=== PATIENT | female | born 2000 | race Caucasian/White ===

== ENCOUNTER 2018-04-14 20:46 | Emergency (ER) | payer OTHER ==
[~2018-04-14] VITALS: Ht 165.1 cm; Wt 54.4 kg
--- NOTE | 2018-04-14 20:53 | ED.ADGEN ---
Adult General Chief Complaint Chief Complaint ".. I ve been having abd. pain off and on... her upper and to the right...".." I did eat chicken and potatoes before I came..." HPI HPI Patient is a 17 year old female who presents with above hx and complaints of Lt upper and mid gastric pain. . No hx of injury, bad food, or ill contacts. Pt. No hx of travel. Pt. denies any discolored stools. Nothing makes the pain better or worse. Review of Systems Review of Systems Constitutional: Denies fever or chills [] Eyes: Denies change in visual acuity, redness, or eye pain [] HENT: Denies nasal congestion or sore throat [] Respiratory: Denies cough or shortness of breath [] Cardiovascular: No additional information not addressed in HPI [] GI: Epigastric abdominal pain, nausea, . Denies vomiting, bloody stools or diarrhea []Obese. : Denies dysuria or hematuria [] Musculoskeletal: Denies back pain or joint pain [ Integument: Denies rash or skin lesions [] Neurologic: Denies headache, focal weakness or sensory changes [] Endocrine: Denies polyuria or polydipsia [] All other systems were reviewed and found to be within normal limits, except as documented in this note. Family History Family History Non-contributory Current Medications Current Medications Current Medications Medications (Trade) Dose Ordered Sig/Duncan Start Time Stop Time Status Last Admin Dose Admin Ceftriaxone Sodium (Rocephin Im) 1 gm 1X ONCE 04/14/18 23:30 04/14/18 23:30 DC Famotidine (Pepcid) 20 mg 1X ONCE 04/14/18 22:15 04/14/18 22:16 DC 04/14/18 22:28 20 MG Magnesium Hydroxide (Milk Of Magnesia) 2,400 mg 1X ONCE 04/14/18 22:15 04/14/18 22:16 DC 04/14/18 22:29 2,400 MG Ondansetron HCl (Zofran Odt) 8 mg 1X ONCE 04/14/18 22:15 04/14/18 22:16 DC 04/14/18 22:30 8 MG Allergies Allergies Allergies Coded Allergies Type Severity Reaction Last Updated Verified haloperidol Allergy Unknown 04/14/18 Yes Physical Exam Physical Exam Constitutional: moderate acute distress, non-toxic appearance. [] HENT: Normocephalic, atraumatic, bilateral external ears normal, oropharynx moist, no oral exudates, nose normal. [] Eyes: PERRLA, EOMI, conjunctiva normal, no discharge. [] Neck: Normal range of motion, no tenderness, supple, no stridor. [] Cardiovascular:Heart rate regular rhythm, no murmur [] Lungs & Thorax: Bilateral breath sounds equal at apex with scattered wheezes on auscultation [] Abdomen: Bowel sounds normal, soft, mild epigastric tenderness, no masses, no pulsatile masses. [] Pt. declines rectal exam at this time. Skin: Warm, dry, no erythema, no rash. [] Back: No tenderness, no CVA tenderness. [] Extremities: No tenderness, no cyanosis, no clubbing, ROM intact, no edema. [No heel tap, psoas or obturator. Neurologic: Alert and oriented X 3, normal motor function, normal sensory function, no focal deficits noted. [] Psychologic: Affect anxious, judgement normal, mood normal. [] Current Patient Data Vital Signs Vital Signs Date Time Temp Pulse Resp B/P (MAP) Pulse Ox O2 Delivery O2 Flow Rate FiO2 04/14/18 23:05 94 16 106/65 (79) 100 Room Air 04/14/18 21:35 98.8 Lab Results Laboratory Tests Test 04/14/18 21:08 04/14/18 21:50 POC Urine HCG, Qualitative hcg negative (Negative) Urine Collection Type Unknown Urine Color [place] Urine Clarity Cloudy Urine pH 6.0 Urine Specific [place] >=1.030 Urine Protein 30 mg/dl (NEG-TRACE) Urine Glucose (UA) Neg mg/dL (NEG) Urine Ketones (Stick) Trace mg/dL (NEG) Urine Blood Mod (NEG) Urine Nitrite Neg (NEG) Urine Bilirubin Neg (NEG) Urine Urobilinogen Dipstick 1 mg/dL (0.2 mg/dL) Urine Leukocyte Esterase Small (NEG) Urine RBC 1-2 /HPF (0-2) Urine WBC >40 /HPF (0-4) Urine Squamous Epithelial Cells Few /LPF Urine Bacteria Few /HPF (0-FEW) Urine Mucus Marked /LPF Urine Opiates Screen Neg (NEG) Urine Methadone Screen Neg (NEG) Urine Barbiturates Neg (NEG) Urine Phencyclidine Screen Neg (NEG) Urine Amphetamine/Methamphetamine Pos (NEG) Urine Benzodiazepines Screen Neg (NEG) Urine Cocaine Screen Neg (NEG) Urine Cannabinoids Screen Neg (NEG) Urine Ethyl Alcohol Neg (NEG) EKG EKG [] Course & Med Decision Making Course & Med Decision Making Pertinent Labs and Imaging studies reviewed. (See chart for details) Clear fluid diet only x 48 hrs. No solids or milk products. Take Keflex 500 three times a day x 7 days. Take Zantac 150 mg twice a day. Stop smoking and illicit drug use. Return if any concerns. Follow up with primary. Consider need for EGD or Gall bladder studies. [] Final Impression Final Impression 1. Abd. Pain[] 2. Gastritis 3. UTI 4. Methamphetamine- 5. Tobacco Abuse Dragon Disclaimer Dragon Disclaimer This electronic medical record was generated, in whole or in part, using a voice recognition dictation system. JHONATHAN BOND MD Apr 14, 2018 20:53
[2018-04-14 22:13] LABS: AMPHETAMINE/METHAMPHETAMINE POS (NEG); BARBITURATES NEG (NEG); BENZODIAZEPINES NEG (NEG); CANNABINOIDS NEG (NEG); COCAINE NEG (NEG); METHADONE NEG (NEG); OPIATES NEG (NEG); PHENCYCLIDINE NEG (NEG)
[2018-04-14] MEDS ORDERED: MAGNESIUM HYDROXIDE 2,400 MG/30 ML ORAL.SUSP. PO ONE (22:15)
[2018-04-14] MEDS ORDERED: FAMOTIDINE 20 MG TABLET PO ONE (22:15)
[2018-04-14] MEDS ORDERED: ONDANSETRON ODT 4 MG TAB.RAPDIS PO ONE (22:15)
[2018-04-14 22:19] LABS: BACTERIA,URINE FEW /HPF (0-FEW); BILIRUBIN,URINE NEG (NEG); CLARITY,URINE CLOUDY; COLOR,URINE AMBER; GLUCOSE,URINE NEG (NEG); NITRITE,URINE NEG (NEG); SQUAMOUS EPITHELIAL CELL,UR FEW /LPF; UROBILINOGEN,URINE 1 mg/dL (0.2 mg/dL); WBC,URINE >40 /HPF (0-4)
[2018-04-14] MEDS ORDERED: RANI150T21 PO (22:58)
[2018-04-14] MEDS ORDERED: CEPH-264 PO (22:58)
[2018-04-14 23:05] VITALS: BP 106/65
[2018-04-14] MEDS ORDERED: cefTRIAXone IM 1 GM VIAL IM ONE (23:30)
== END 2018-04-14 23:07 | disposition home or self-care (01) ==
LOC: ER 20:46
DX: K29.70 Gastritis, unspecified, without bleeding (principal); N39.0 Urinary tract infection, site not specified; F15.90 Other stimulant use, unspecified, uncomplicated; Z72.0 Tobacco use; Z88.8 Allergy status to other drugs, medicaments and biological substances
CPT/HCPCS: 36415; 80307; 81001; 81025; 87086; 99284; Q0162; G0479

== ENCOUNTER 2018-06-23 20:51 | Emergency (ER) | payer OTHER ==
[~2018-06-23] VITALS: Ht 167.6 cm; Wt 69.4 kg
[~2018-06-23 20:51] MED LIST: CEPH-264 PO; RANI150T21 PO
--- NOTE | 2018-06-23 21:07 | ED.ADGEN ---
Past History Past Medical History: Asthma, Bipolar, Depression Past Surgical History: No Surgical History Alcohol Use: None Drug Use: None Adult General Chief Complaint Chief Complaint ".. I am .. and I started having pain yesterday .. when I fell on stairs.. and tonight I started bleeding in the shower..tonight." HPI HPI Patient is a 17 year old female who presents with above hx and complaints abdomen pain with vaginal bleeding. Pt. she estimates 2- 3 months. Pt fell going up stairs last night.. and has had abdomen pain since then. Pt. localizes pain in lower pelvic. Tonight when taking a shower she notice vaginal bleeding. Pt. denies prior pregnancies. Denies prior STD's. Has had hx of 15 life time sexual partners. Pt. has not had any care. Pt. states recent bleeding has soaked the tampon. Pt, does smoke but denies other drug use. Pt. described pain worse with movement tonight. Patient states her home test was positive. Review of Systems Review of Systems Constitutional: Denies fever or chills [] Eyes: Denies change in visual acuity, redness, or eye pain [] HENT: Denies nasal congestion or sore throat [] Respiratory: Denies cough or shortness of breath [] Cardiovascular: No additional information not addressed in HPI [] GI: Complaints of abdominal pain, nausea,. Denies vomiting, bloody stools or diarrhea [] : Denies dysuria or hematuria [. Vaginal Bleeding Musculoskeletal: Denies back pain or joint pain [] Integument: Denies rash or skin lesions [] Neurologic: Denies headache, focal weakness or sensory changes [] Endocrine: Denies polyuria or polydipsia [] All other systems were reviewed and found to be within normal limits, except as documented in this note. Family History Family History Non-contributory Current Medications Current Medications Current Medications Medications (Trade) Dose Ordered Sig/Duncan Start Time Stop Time Status Last Admin Dose Admin Lactated Ringer's 1,000 ml @ 1,000 mls/hr Q1H 06/23/18 21:30 06/23/18 22:29 DC 06/23/18 21:54 1,000 MLS/HR Allergies Allergies Allergies Coded Allergies Type Severity Reaction Last Updated Verified haloperidol Allergy Unknown 04/14/18 Yes Physical Exam Physical Exam Constitutional: Well developed, well nourished, moderately acute distress, non- toxic appearance. [] HENT: Normocephalic, atraumatic, bilateral external ears normal, oropharynx moist, no oral exudates, nose normal. [] Eyes: PERRLA, EOMI, conjunctiva normal, no discharge. []Glasses Neck: Normal range of motion, no tenderness, supple, no stridor. [] Cardiovascular:Heart rate regular rhythm, no murmur [] Lungs & Thorax: Bilateral breath sounds equal at apex with scattered wheezing on auscultation [] Abdomen: Bowel sounds normal, soft, generalized lower abdomen tenderness, no masses, no pulsatile masses. [Poorly exam shows bleeding from os. Bilateral adnexal tenderness. Cervix does not appear to be consistent with . Mild rebound to lower abdomen. Skin: Warm, dry, no erythema, no rash. [] Back: No tenderness, no CVA tenderness. [] Extremities: No tenderness, no cyanosis, no clubbing, ROM intact, no edema. [] No true psoas sign or heeltap. Neurologic: Alert and oriented X 3, normal motor function, normal sensory function, no focal deficits noted. [] Psychologic: Affect very anxious, judgement normal, mood normal. [] Current Patient Data Vital Signs Vital Signs Date Time Temp Pulse Resp B/P (MAP) Pulse Ox O2 Delivery O2 Flow Rate FiO2 06/23/18 23:47 71 18 111/42 (65) 97 Room Air 06/23/18 21:03 99.0 Lab Results Laboratory Tests Test 06/23/18 21:33 06/23/18 21:57 06/23/18 22:13 White Blood Count 8.4 x10^3/uL (4.0-11.0) Red Blood Count 4.17 x10^6/uL (3.50-5.40) Hemoglobin 12.2 g/dL (12.0-15.5) Hematocrit 37.0 % (36.0-47.0) Mean Corpuscular Volume 89 fL (79-100) Mean Corpuscular Hemoglobin 29 pg (25-35) Mean Corpuscular Hemoglobin Concent 33 g/dL (31-37) Red Cell Distribution Width 13.9 % (11.5-14.5) Platelet Count 292 x10^3/uL (140-400) Neutrophils (%) (Auto) 56 % (31-73) Lymphocytes (%) (Auto) 31 % (24-48) Monocytes (%) (Auto) 10 % (0-9) H Eosinophils (%) (Auto) 2 % (0-3) Basophils (%) (Auto) 1 % (0-3) Neutrophils # (Auto) 4.7 x10^3uL (1.8-7.7) Lymphocytes # (Auto) 2.6 x10^3/uL (1.0-4.8) Monocytes # (Auto) 0.8 x10^3/uL (0.0-1.1) Eosinophils # (Auto) 0.2 x10^3/uL (0.0-0.7) Basophils # (Auto) 0.1 x10^3/uL (0.0-0.2) Prothrombin Time 10.7 SEC (9.4-11.4) Prothrombin Time INR 1.1 (0.9-1.1) PTT 27 SEC (23-33) Maternal Serum HCG Beta Subunit < 1 mIU/mL (0-6) Sodium Level 141 mmol/L (136-145) Potassium Level 3.5 mmol/L (3.5-5.1) Chloride Level 106 mmol/L (98-107) Carbon Dioxide Level 27 mmol/L (21-32) Anion Gap 8 (6-14) Blood Urea Nitrogen 16 mg/dL (7-20) Creatinine 0.7 mg/dL (0.6-1.0) Estimated GFR (Cockcroft-Gault) 107.8 Glucose Level 93 mg/dL (70-99) Calcium Level 8.5 mg/dL (8.5-10.1) Total Bilirubin 0.3 mg/dL (0.2-1.0) Direct Bilirubin 0.1 mg/dL (0.0-0.2) Aspartate Amino Transferase (AST) 61 U/L (15-37) H Alanine Aminotransferase (ALT) 316 U/L (14-59) H Alkaline Phosphatase 78 U/L (46-116) Total Protein 7.3 g/dL (6.4-8.2) Albumin 3.7 g/dL (3.4-5.0) Lipase 189 U/L (73-393) Urine Collection Type U cath Urine Color Yellow Urine Clarity Clear Urine pH 6.0 Urine Specific [place] 1.025 Urine Protein Neg (NEG-TRACE) Urine Glucose (UA) Neg mg/dL (NEG) Urine Ketones (Stick) Trace mg/dL (NEG) Urine Blood Neg (NEG) Urine Nitrite Neg (NEG) Urine Bilirubin Neg (NEG) Urine Urobilinogen Dipstick 0.2 mg/dL (0.2 mg/dL) Urine Leukocyte Esterase Neg (NEG) Urine RBC 0 /HPF (0-2) Urine WBC 1-4 /HPF (0-4) Urine Squamous Epithelial Cells Occ /LPF Urine Bacteria 0 /HPF (0-FEW) Urine Mucus Slight /LPF POC Urine HCG, Qualitative hcg negative (Negative) EKG EKG [] Radiology/Procedures Radiology/Procedures Sounds shows no intrauterine . Flow to both ovaries. See formal report when available[] Course & Med Decision Making Course & Med Decision Making Pertinent Labs and Imaging studies reviewed. (See chart for details) Follow-up with primary care follow-up [employer] for dysfunctional uterine bleeding. Follow-up cultures. Continue monitor bleeding. Return if any concerns. Take Tylenol for pain. Encouraged patient to stop smoking. [] Final Impression Final Impression 1. Dysfunctional uterine bleeding 2. Abdomen pain Dragon Disclaimer Dragon Disclaimer This electronic medical record was generated, in whole or in part, using a voice recognition dictation system. JHONATHAN BOND MD Jun 23, 2018 21:07
[2018-06-23] MEDS ORDERED: IV RINGERS SOLUTION,LACTATED 1,000 ML IV SCH (21:30)
[2018-06-23 21:58] LABS: BASO # 0.1 x10^3/uL (0.0-0.2); BASO % 1 % (0-3); EOS # 0.2 x10^3/uL (0.0-0.7); EOS % 2 % (0-3); HEMOGLOBIN 12.2 g/dL (12.0-15.5); LYMPH # 2.6 x10^3/uL (1.0-4.8); LYMPH % 31 % (24-48); MEAN CORPUSCULAR HEMOGLOBIN 29 pg (25-35); MEAN CORPUSCULAR HGB CONC 33 g/dL (31-37); MEAN CORPUSCULAR VOLUME 89 fL (79-100); MONO # 0.8 x10^3/uL (0.0-1.1); MONO % 10 % (0-9); NEUT # 4.7 x10^3uL (1.8-7.7); NEUT % 56 % (31-73); PLATELET COUNT 292 x10^3/uL (140-400); RED BLOOD COUNT 4.17 x10^6/uL (3.50-5.40); RED CELL DISTRIBUTION WIDTH 13.9 % (11.5-14.5); WHITE BLOOD COUNT 8.4 x10^3/uL (4.0-11.0)
[2018-06-23 22:09] LABS: ALBUMIN 3.7 g/dL (3.4-5.0); CALCIUM 8.5 mg/dL (8.5-10.1); CREATININE 0.7 mg/dL (0.6-1.0); DIRECT BILIRUBIN 0.1 mg/dL (0.0-0.2); GFR 107.8; POTASSIUM 3.5 mmol/L (3.5-5.1); TOTAL BILIRUBIN 0.3 mg/dL (0.2-1.0); TOTAL PROTEIN 7.3 g/dL (6.4-8.2)
[2018-06-23 22:37] LABS: BACTERIA,URINE 0 /HPF (0-FEW); BILIRUBIN,URINE NEG (NEG); CLARITY,URINE CLEAR; COLOR,URINE YELLOW; GLUCOSE,URINE NEG (NEG); NITRITE,URINE NEG (NEG); RBC,URINE 0 /HPF (0-2); UROBILINOGEN,URINE 0.2 mg/dL (0.2 mg/dL)
[2018-06-23 22:38] LABS: SQUAMOUS EPITHELIAL CELL,UR OCC /LPF
[2018-06-23 23:47] VITALS: BP 111/42
--- NOTE | 2018-06-23 23:49 | RAD ---
Ultrasound pelvis complete and transvaginal ultrasound pelvis: HISTORY: Patient thought she was , vaginal bleeding positive test in March Sonographic examination of the pelvis was performed by transabdominal and endovaginal technique and multiple static images were obtained Ultrasound pelvis complete transabdominal: The uterus is seen. The ovaries are not seen. Transvaginal ultrasound pelvis: The uterus appears normal. The endometrium is homogeneous measures 6 mm in thickness. The ovaries appear normal normal blood flow. The right ovary measures 2.2 x 2.2 x 2.1 cm. Left ovary measures 2.5 x 1.8 x 1.5 cm. IMPRESSION: Negative examination. No evidence of . Electronically signed by: Saroj Gonzalez III, MD (06/23/2018 11:46 PM) [facility]
[2018-06-25 15:07] LABS: CHLAMYDIA PROBE Negative (Negative)
== END 2018-06-24 00:06 | disposition home or self-care (01) ==
LOC: ER 20:51
DX: N93.8 Other specified abnormal uterine and vaginal bleeding (principal); R10.84 Generalized abdominal pain; J45.909 Unspecified asthma, uncomplicated; Z88.8 Allergy status to other drugs, medicaments and biological substances
CPT/HCPCS: 36415; 76830; 76856; 80048; 80076; 81001; 81025; 83690; 84443; 84702; 85025; 85610; 85730; 86592; 86703; 86705; 86709; 86803; 86900; 86901; 87340; 87491; 87591; 99285; J7120

== ENCOUNTER 2018-07-04 15:53 | Emergency (ER) | payer OTHER ==
[~2018-07-04] VITALS: Ht 167.6 cm; Wt 69.4 kg
[2018-07-04] MEDS ORDERED: IV NORMAL SALINE 1,000ML 1,000 ML IV ONE ×2 (16:00→17:00)
[2018-07-04] MEDS ORDERED: NALOXONE 2 MG/2 ML DISP.SYRIN. IV ONE ×2 (16:08→17:15)
[2018-07-04 16:11] VITALS: BP 115/56
[2018-07-04 16:14] LABS: BASO # 0.1 x10^3/uL (0.0-0.2); BASO % 1 % (0-3); EOS # 0.1 x10^3/uL (0.0-0.7); EOS % 2 % (0-3); HEMATOCRIT 36.4 % (36.0-47.0); HEMOGLOBIN 12.2 g/dL (12.0-15.5); LYMPH # 1.6 x10^3/uL (1.0-4.8); LYMPH % 23 % (24-48); MEAN CORPUSCULAR HEMOGLOBIN 29 pg (25-35); MEAN CORPUSCULAR HGB CONC 34 g/dL (31-37); MEAN CORPUSCULAR VOLUME 87 fL (79-100); MONO # 0.6 x10^3/uL (0.0-1.1); MONO % 9 % (0-9); NEUT # 4.5 x10^3uL (1.8-7.7); NEUT % 66 % (31-73); PLATELET COUNT 243 x10^3/uL (140-400); RED BLOOD COUNT 4.16 x10^6/uL (3.50-5.40); RED CELL DISTRIBUTION WIDTH 12.8 % (11.5-14.5); WHITE BLOOD COUNT 6.9 x10^3/uL (4.0-11.0)
[2018-07-04 16:20] LABS: BACTERIA,URINE 0 /HPF (0-FEW); BILIRUBIN,URINE NEG (NEG); CLARITY,URINE CLEAR; COLOR,URINE YELLOW; GLUCOSE,URINE NEG (NEG); NITRITE,URINE NEG (NEG); RBC,URINE RARE /HPF (0-2); SQUAMOUS EPITHELIAL CELL,UR OCC /LPF; UROBILINOGEN,URINE 0.2 mg/dL (0.2 mg/dL); WBC,URINE 0 /HPF (0-4)
[2018-07-04 16:22] LABS: AMPHETAMINE/METHAMPHETAMINE NEG (NEG); BARBITURATES NEG (NEG); BENZODIAZEPINES NEG (NEG); CALCIUM 8.7 mg/dL (8.5-10.1); CANNABINOIDS NEG (NEG); COCAINE NEG (NEG); CREATININE 0.7 mg/dL (0.6-1.0); GFR 107.8; METHADONE NEG (NEG); OPIATES NEG (NEG); PHENCYCLIDINE NEG (NEG); POTASSIUM 3.7 mmol/L (3.5-5.1)
--- NOTE | 2018-07-04 16:45 | RAD ---
CT Head without contrast Clinical Indication: Unresponsive, syncopal episode Comparison: None Technique: Multiple CT images of the head were obtained without contrast. *One or more of the following individualized dose reduction techniques were utilized for this examination: 1. Automated exposure control. 2. Adjustment of the mA and/or kV according to patient size. 3. Use of iterative reconstruction technique. Findings: Ventricles and subarachnoid spaces are normal in size and configuration for age. No acute intracranial hemorrhage or extra-axial fluid collection. The maldonado-white matter interfaces are maintained. No midline shift. The basal cisterns are patent. The visualized mastoid air cells and paranasal sinuses are well aerated. Impression: No acute intracranial hemorrhage. Electronically signed by: Issa Jordan MD (07/04/2018 4:41 PM) [facility] [place]
--- NOTE | 2018-07-04 16:45 | RAD ---
Single view chest 07/04/2018 CLINICAL INDICATION: Syncope. COMPARISON: None. FINDINGS: Cardiac and mediastinal silhouettes are unremarkable. No pleural effusion, pneumothorax or focal consolidation. IMPRESSION: No acute cardiopulmonary abnormality. Electronically signed by: Issa Jordan MD (07/04/2018 4:42 PM) [facility] [place]
--- NOTE | 2018-07-04 16:55 | PHYS DOC ---
Past History Past Medical History: No Pertinent History Past Surgical History: No Surgical History Alcohol Use: None Drug Use: None Adult General Chief Complaint Chief Complaint: ALTERED MENTAL STATUS HPI HPI 17-year-old female presents via EMS unresponsive but with stable vitals. The patient was putting hair dye in her hair and then reported to get [place] in her eyes and mouth. Family states that she then passed out and became unresponsive. EMS found her to only react to painful stimuli. Her blood pressure , heart rate, and patient's saturation was normal. When the patient arrived in the ED, she was only responsive to pain or noxious stimuli. After the patient woke up, she told me that she remembered using the hair dye and getting it in her mouth. She felt like she was going in and out of consciousness lasting she remembers before waking up in the emergency room. Patient does have a history of intermittent syncope that she is unsure why she has. She states that she also was diagnosed with seizure disorder. She has not taken seizure medication last 2 years. She had a seizure one month ago. She states that they are typically triggered by stress or flashing lights. The patient denies any pain at this time. She has not been feeling ill lately. Review of Systems Review of Systems Constitutional: Denies fever or chills [] Eyes: Denies change in visual acuity, redness, or eye pain [] HENT: Denies nasal congestion or sore throat [] Respiratory: Denies cough or shortness of breath [] Cardiovascular: No additional information not addressed in HPI [] GI: Denies abdominal pain, nausea, vomiting, bloody stools or diarrhea [] : Denies dysuria or hematuria [] Musculoskeletal: Denies back pain or joint pain [] Integument: Denies rash or skin lesions [] Neurologic: Syncope[] Endocrine: Denies polyuria or polydipsia [] All other systems were reviewed and found to be within normal limits, except as documented in this note. Current Medications Current Medications Current Medications Medications (Trade) Dose Ordered Sig/Duncan Start Time Stop Time Status Last Admin Dose Admin Naloxone HCl (Narcan) 2 mg STK-MED ONCE 07/04/18 16:08 07/04/18 16:09 DC Sodium Chloride 1,000 ml @ 1,000 mls/hr 1X ONCE 07/04/18 16:00 07/04/18 16:59 Allergies Allergies Allergies Coded Allergies Type Severity Reaction Last Updated Verified haloperidol Allergy Unknown 04/14/18 Yes Physical Exam Physical Exam Constitutional: Well developed, well nourished, non-toxic appearance. Unconscious [] HENT: Normocephalic, atraumatic, bilateral external ears normal, oropharynx moist, no oral exudates, nose normal. [] Eyes: PERRLA, EOMI, conjunctiva normal, no discharge. [] Neck: Normal range of motion, no tenderness, supple, no stridor. [] Cardiovascular:Heart rate regular rhythm, no murmur [] Lungs & Thorax: Bilateral breath sounds clear to auscultation [] Abdomen: Bowel sounds normal, soft, no tenderness, no masses, no pulsatile masses. [] Skin: Warm, dry, no erythema, no rash. [] Back: No tenderness, no CVA tenderness. [] Extremities: No tenderness, no cyanosis, no clubbing, ROM intact, no edema. [] Neurologic: Initially only responsive to painful or noxious stimuli. On reexamination she was Alert and oriented X 3, normal motor function, normal sensory function, no focal deficits noted. [] Psychologic: Affect normal, judgement normal, mood anxious. [] Current Patient Data Lab Results Laboratory Tests Test 07/04/18 16:00 White Blood Count 6.9 x10^3/uL (4.0-11.0) Red Blood Count 4.16 x10^6/uL (3.50-5.40) Hemoglobin 12.2 g/dL (12.0-15.5) Hematocrit 36.4 % (36.0-47.0) Mean Corpuscular Volume 87 fL (79-100) Mean Corpuscular Hemoglobin 29 pg (25-35) Mean Corpuscular Hemoglobin Concent 34 g/dL (31-37) Red Cell Distribution Width 12.8 % (11.5-14.5) Platelet Count 243 x10^3/uL (140-400) Neutrophils (%) (Auto) 66 % (31-73) Lymphocytes (%) (Auto) 23 % (24-48) L Monocytes (%) (Auto) 9 % (0-9) Eosinophils (%) (Auto) 2 % (0-3) Basophils (%) (Auto) 1 % (0-3) Neutrophils # (Auto) 4.5 x10^3uL (1.8-7.7) Lymphocytes # (Auto) 1.6 x10^3/uL (1.0-4.8) Monocytes # (Auto) 0.6 x10^3/uL (0.0-1.1) Eosinophils # (Auto) 0.1 x10^3/uL (0.0-0.7) Basophils # (Auto) 0.1 x10^3/uL (0.0-0.2) Urine Collection Type Unknown Urine Color Yellow Urine Clarity Clear Urine pH 8.0 Urine Specific [place] 1.015 Urine Protein Neg (NEG-TRACE) Urine Glucose (UA) Neg mg/dL (NEG) Urine Ketones (Stick) Neg mg/dL (NEG) Urine Blood Neg (NEG) Urine Nitrite Neg (NEG) Urine Bilirubin Neg (NEG) Urine Urobilinogen Dipstick 0.2 mg/dL (0.2 mg/dL) Urine Leukocyte Esterase Neg (NEG) Urine RBC Rare /HPF (0-2) Urine WBC 0 /HPF (0-4) Urine Squamous Epithelial Cells Occ /LPF Urine Bacteria 0 /HPF (0-FEW) Sodium Level 135 mmol/L (136-145) L Potassium Level 3.7 mmol/L (3.5-5.1) Chloride Level 103 mmol/L (98-107) Carbon Dioxide Level 26 mmol/L (21-32) Anion Gap 6 (6-14) Blood Urea Nitrogen 10 mg/dL (7-20) Creatinine 0.7 mg/dL (0.6-1.0) Estimated GFR (Cockcroft-Gault) 107.8 Glucose Level 103 mg/dL (70-99) H Calcium Level 8.7 mg/dL (8.5-10.1) Urine Opiates Screen Neg (NEG) Urine Methadone Screen Neg (NEG) Urine Barbiturates Neg (NEG) Urine Phencyclidine Screen Neg (NEG) Urine Amphetamine/Methamphetamine Neg (NEG) Urine Benzodiazepines Screen Neg (NEG) Urine Cocaine Screen Neg (NEG) Urine Cannabinoids Screen Neg (NEG) Urine Ethyl Alcohol Neg (NEG) EKG EKG Sinus rhythm, rate 66, normal axis, no ST elevations or depressions.[] Radiology/Procedures Radiology/Procedures [] Impressions: CT Head without contrast Clinical Indication: Unresponsive, syncopal episode Comparison: None Technique: Multiple CT images of the head were obtained without contrast. *One or more of the following individualized dose reduction techniques were utilized for this examination: 1. Automated exposure control. 2. Adjustment of the mA and/or kV according to patient size. 3. Use of iterative reconstruction technique. Findings: Ventricles and subarachnoid spaces are normal in size and configuration for age. No acute intracranial hemorrhage or extra-axial fluid collection. The maldonado-white matter interfaces are maintained. No midline shift. The basal cisterns are patent. The visualized mastoid air cells and paranasal sinuses are well aerated. Impression: No acute intracranial hemorrhage. Electronically signed by: Cindy Jordan MD (07/04/2018 4:41 PM) [facility] DICTATED AND SIGNED BY: CINDY JORDAN MD DATE: 07/04/18 1640 CC: KACY MANN DO; PCP,NO Single view chest 07/04/2018 CLINICAL INDICATION: Syncope. COMPARISON: None. FINDINGS: Cardiac and mediastinal silhouettes are unremarkable. No pleural effusion, pneumothorax or focal consolidation. IMPRESSION: No acute cardiopulmonary abnormality. Electronically signed by: Cindy Jordan MD (07/04/2018 4:42 PM) [facility] [place] DICTATED AND SIGNED BY: CINDY JORDAN MD DATE: 07/04/18 1641 CC: KACY MANN DO; PCP,NO Course & Med Decision Making Course & Med Decision Making Pertinent Labs and Imaging studies reviewed. (See chart for details) On arrival the patient was only responsive to painful stimuli. I did try an ammonia tablet that she reacted to. She began to cough. There was saliva in her mouth and she turned her head while coughing without assistance. She still was unable to answer questions or open her eyes. She coughed for about 30 seconds and then went back to being unresponsive. She was able to protect her airway and control her saliva, so intubation wasn't necessary. Her O2 saturation, heart rate, and blood pressure were reassuring. The patient had one episode of shaking her bilateral upper extremities that lasted for about 10 seconds. She continued to be unarousable at that time. The patient was given 2 mg of Narcan with no effect. 1 L normal saline was started. After about 45 minutes, the patient woke up. She was able to tell me the story from her perspective. She was alert and oriented. She was answering questions appropriately. She denies any drug use. She denies any alcohol today. He admits to drug use in the past, [address] months [address] Her head CT and chest x-ray are unremarkable. Her labs are unremarkable. Her urinalysis is negative for infection. Her urine drug screen is negative. It is possible that the patient had a syncopal event followed by seizure. I do not have definitive evidence either way. I will give her 1 g of Keppra and have her follow-up with neurology, , this week. If she has another seizure she will return to the emergency room for admission. Review of 35 minutes of critical care time was spent on this patient exclusive of other billable procedures. [] Dragon Disclaimer Dragon Disclaimer This electronic medical record was generated, in whole or in part, using a voice recognition dictation system. Departure Departure: Referrals: PCP,DARIA (PCP) KACY MANN DO Jul 04, 2018 16:55
--- NOTE | 2018-07-04 17:24 | EKG ---
[address] [address] Test Date: 2018-07-04 Test Time: 16:36:50 Pat Name: MARTIN MUNSON Department: Room: Gender: F Color Tester: : 2000 Requested By: KACY MANN Order Number: [id number] Reading MD: Zander Austin MD Measurements Intervals [place] Rate: 66 P: 0 VA: 114 QRS: 53 QRSD: 80 T: 42 QT: 374 QTc: 394 Interpretive Statements SINUS RHYTHM Electronically Signed On 07-07-2018 10:04:08 WRAP CHECKER by Zander Austin MD
[2018-07-04] MEDS ORDERED: levETIRAcetam 500 MG TABLET PO ONE (17:40)
== END 2018-07-04 18:28 | disposition home or self-care (01) ==
LOC: ER 15:53
DX: R55 Syncope and collapse (principal); G40.909 Epilepsy, unspecified, not intractable, without status epilepticus; Z88.8 Allergy status to other drugs, medicaments and biological substances
CPT/HCPCS: 36415; 51702; 70450; 71045; 80048; 80307; 81001; 85025; 93005; 96361; 96374; 99285; J2310; J7030

== ENCOUNTER 2018-09-06 13:54 | Emergency (ER) | payer OTHER ==
[~2018-09-06] VITALS: Ht 167.6 cm; Wt 60.4 kg
--- NOTE | 2018-09-06 15:01 | PHYS DOC ---
Past History Past Medical History: Anxiety, Bipolar, Depression, Seizure, UTI Past Surgical History: No Surgical History Alcohol Use: None Drug Use: Methamphetamine Adult General Chief Complaint Chief Complaint: ABDOMINAL PAIN IN HPI HPI Patient is a 17 yo female who presents with complaint of abdominal cramping that began overnight. Patient reports she had an appointment on 09/02/18 with PCP where they confirmed her . Patient does not know how far along she is or timing of her LMP as she had miscarriage in late May 2018 and did not have regular periods after that. She reports prior to her miscarriage she was having abdominal cramping that was similar in nature to today's symptoms. Therefore patient is a [id number]. She reports past history of IV methamphetamine abuse with last use 4 days prior. She denies vaginal discharge, bleeding, foul smelling urine, burning with urination, nausea, vomiting or diarrhea. She has not taken any medication to alleviate the symptoms. She also reports PMH of hep C that she has not yet received treatment. She has first appointment with OBGYN scheduled for Friday (09/08/18). Review of Systems Review of Systems Constitutional: Denies fever or chills [] HENT: Denies nasal congestion or sore throat [] Respiratory: Denies cough or shortness of breath [] Cardiovascular: Denies chest pain or palpitation GI: Admits abdominal pain; denies nausea, vomiting, bloody stools or diarrhea [] : Denies dysuria or hematuria, denies vaginal discharge. [] Musculoskeletal: Denies back pain or joint pain [] Integument: Denies rash or skin lesions [] Neurologic: Denies headache, focal weakness or sensory changes [] Complete systems were reviewed and found to be within normal limits, except as documented in this note. Allergies Allergies Allergies Coded Allergies Type Severity Reaction Last Updated Verified haloperidol Allergy Unknown 04/14/18 Yes quetiapine Allergy Unknown 09/06/18 Yes Physical Exam Physical Exam Constitutional: Well developed, well nourished, no acute distress, non-toxic appearance. [] HENT: Normocephalic, atraumatic, oropharynx moist Eyes: EOMI, conjunctiva normal, no discharge. [] Neck: Normal range of motion, no tenderness, supple Cardiovascular: Heart rate regular rhythm, no murmur [] Lungs & Thorax: Bilateral breath sounds clear to auscultation [] Abdomen: Soft, bilateral lower quadrant tenderness present to palpation. : Patient declined pelvic exam- reports she will follow up with her [employer] [employer] [facility] Skin: Warm, dry, no erythema, no rash. healed excoriations present on bilateral antecubital regions. [] Back: No tenderness, no CVA tenderness. [] Extremities: No tenderness, ROM intact, no edema. [] Neurologic: Alert and oriented X 3, normal motor function, normal sensory function, no focal deficits noted. [] Psychologic: Affect normal, judgement normal, mood normal. [] Current Patient Data Vital Signs Vital Signs Date Time Temp Pulse Resp B/P (MAP) Pulse Ox O2 Delivery O2 Flow Rate FiO2 09/06/18 13:54 98.1 98 16 99 Room Air Radiology/Procedures Radiology/Procedures [PROCEDURE: OB <14 WKS W/TV Indication:Positive home test. TECHNIQUE: Ultrasound OB less than 14 weeks. COMPARISON: None FINDINGS: Retroverted uterus is seen measuring 8.0 x 6.5 x 5.0 cm (longitudinal, transverse, AP). Single intrauterine line gestation sac is seen with mean sac diameter of 1.4 cm corresponding to gestation age of 6 weeks 2 day. Yolk sac is seen. [place]-rump length measures 0.26 cm corresponding to gestation age of 5 weeks 6 days. No cardiac activity seen. Right ovary measures 4.3 x 5.7 x 2.8 cm with a simple appearing cyst measuring 2.6 x 3.0 x 2.0 cm and shows blood flow. The left ovary measures 3.7 x 1.7 x 2.4 cm and shows blood flow. Simple appearing small amount of free pelvic fluid seen. IMPRESSION: 1. Single intrauterine corresponding to gestation age of 6 weeks 1 day with no cardiac activity seen as of yet. Follow-up ultrasound recommended. Correlate with beta-hCG. 2. Simple appearing right ovarian cyst. Electronically signed by: Phil Cornell DO (09/06/2018 4:41 PM) [facility]] Course & Med Decision Making Course & Med Decision Making Patient is 17 yo [id number] who presents with chief complaint of abdominal cramping. Pt reports the was confirmed by PCP 09/02/18 and she has first appointment with OBGYN 09/08/18. Patient presents complaining of crampy abdominal pain in lower abdomen that is similar to abdominal pain she had before miscarriage in May 2018. Patient admits to last using IV meth . She denies nausea, vomiting, chest pain, shortness of breath, vaginal discharge, vaginal bleeding, foul smelling urine, dysuria, or concerns for STI. We were unable to obtain blood samples for lab work and patient was unable to provide urine sample. She denied pelvic exam. Patient difficult IV draw due to her chronic IVDA. RN and lab techs attempted blood draws multiple times without success. Patient ultimately requested to stop trying to obtain blood/ urine sample as she will be at [facility]'s office 09/08/17. Patient received NS fluid and PO clear liquids. OB report indicated single IUP measuring 6w1d. Discussed with patient that she should continue her vitamins and keep existing appointment with [employer] and patient vocalized understanding of plan. Also discussed that patient should return with any vaginal bleeding or symptoms return. Patient stable for discharge with outpatient follow-up with PCP. Discussed findings and plan with patient and family, who acknowledge understanding and agreement. Dragon Disclaimer Dragon Disclaimer This electronic medical record was generated, in whole or in part, using a voice recognition dictation system. Departure Departure: Impression: Primary Impression: Abdominal pain during in first trimester Disposition: 01 HOME, SELF-CARE Condition: STABLE Referrals: CAYETANO GILBERT (PCP) Patient Instructions: ABCs of , Abdominal Pain During , Easy- to-Read JEREMI BRADLEY DO Sep 06, 2018 15:01
[2018-09-06] MEDS ORDERED: IV NORMAL SALINE 1,000ML 1,000 ML IV ONE (15:45)
[2018-09-06 16:45] VITALS: BP 113/70
--- NOTE | 2018-09-06 16:45 | RAD ---
Indication:Positive home test. TECHNIQUE: Ultrasound OB less than 14 weeks. COMPARISON: None FINDINGS: Retroverted uterus is seen measuring 8.0 x 6.5 x 5.0 cm (longitudinal, transverse, AP). Single intrauterine line gestation sac is seen with mean sac diameter of 1.4 cm corresponding to gestation age of 6 weeks 2 day. Yolk sac is seen. [place]-rump length measures 0.26 cm corresponding to gestation age of 5 weeks 6 days. No cardiac activity seen. Right ovary measures 4.3 x 5.7 x 2.8 cm with a simple appearing cyst measuring 2.6 x 3.0 x 2.0 cm and shows blood flow. The left ovary measures 3.7 x 1.7 x 2.4 cm and shows blood flow. Simple appearing small amount of free pelvic fluid seen. IMPRESSION: 1. Single intrauterine corresponding to gestation age of 6 weeks 1 day with no cardiac activity seen as of yet. Follow-up ultrasound recommended. Correlate with beta-hCG. 2. Simple appearing right ovarian cyst. Electronically signed by: Phil Cornell DO (09/06/2018 4:41 PM) [facility]
== END 2018-09-06 17:00 | disposition home or self-care (01) ==
LOC: ER 13:54
DX: O26.891 Other specified pregnancy related conditions, first trimester (principal); R10.31 Right lower quadrant pain; R10.32 Left lower quadrant pain; O34.81 Maternal care for other abnormalities of pelvic organs, first trimester; N83.201 Unspecified ovarian cyst, right side; O23.41 Unspecified infection of urinary tract in pregnancy, first trimester; O99.341 Other mental disorders complicating pregnancy, first trimester; F41.9 Anxiety disorder, unspecified; F31.9 Bipolar disorder, unspecified; Z3A.01 Less than 8 weeks gestation of pregnancy; Z88.8 Allergy status to other drugs, medicaments and biological substances
CPT/HCPCS: 76801; 76817; 99284-25

== ENCOUNTER 2018-09-19 18:28 | Emergency (ER) | payer OTHER ==
[2018-09-19 18:32] VITALS: BP 116/73
--- NOTE | 2018-09-19 18:55 | PHYS DOC ---
Past History Past Medical History: Anxiety, Bipolar, Depression, Seizure, UTI Past Surgical History: No Surgical History Alcohol Use: None Drug Use: None Adult General Chief Complaint Chief Complaint: PAIN ON URINATION HPI HPI 17-year-old female presents with dysuria and increased frequency. The patient has had multiple UTIs in the past and states this feels similar. The patient is 8 weeks and she knows she should not delay treatment of UTI during . She denies any vaginal discharge or bleeding. She is not having abdominal pain. She denies fever or chills. Review of Systems Review of Systems Constitutional: Denies fever or chills [] Eyes: Denies change in visual acuity, redness, or eye pain [] HENT: Denies nasal congestion or sore throat [] Respiratory: Denies cough or shortness of breath [] Cardiovascular: No additional information not addressed in HPI [] GI: Denies abdominal pain, nausea, vomiting, bloody stools or diarrhea [] : Dysuria and urinary frequency [] Musculoskeletal: Denies back pain or joint pain [] Integument: Denies rash or skin lesions [] Neurologic: Denies headache, focal weakness or sensory changes [] Endocrine: Denies polyuria or polydipsia [] All other systems were reviewed and found to be within normal limits, except as documented in this note. Allergies Allergies Allergies Coded Allergies Type Severity Reaction Last Updated Verified haloperidol Allergy Unknown 04/14/18 Yes quetiapine Allergy Unknown 09/06/18 Yes Physical Exam Physical Exam Constitutional: Well developed, well nourished, no acute distress, non-toxic appearance. [] HENT: Normocephalic, atraumatic, bilateral external ears normal, oropharynx moist, no oral exudates, nose normal. [] Eyes: PERRLA, EOMI, conjunctiva normal, no discharge. [] Neck: Normal range of motion, no tenderness, supple, no stridor. [] Cardiovascular:Heart rate regular rhythm, no murmur [] Lungs & Thorax: Bilateral breath sounds clear to auscultation [] Abdomen: Bowel sounds normal, soft, no tenderness, no masses, no pulsatile masses. [] Skin: Warm, dry, no erythema, no rash. [] Back: No tenderness, no CVA tenderness. [] Extremities: No tenderness, no cyanosis, no clubbing, ROM intact, no edema. [] Neurologic: Alert and oriented X 3, normal motor function, normal sensory function, no focal deficits noted. [] Psychologic: Affect normal, judgement normal, mood normal. [] Current Patient Data Vital Signs Vital Signs Date Time Temp Pulse Resp B/P (MAP) Pulse Ox O2 Delivery O2 Flow Rate FiO2 09/19/18 18:32 98.4 90 18 99 Room Air EKG EKG [] Radiology/Procedures Radiology/Procedures [] Course & Med Decision Making Course & Med Decision Making Pertinent Labs and Imaging studies reviewed. (See chart for details) Patient urinalysis shows 5-10 white cells site esterase. There are squamous epithelials. Given the patient's symptoms and the importance of treating urinary tract infections in , I will treat her with Keflex for 5 days. [] Dragon Disclaimer Dragon Disclaimer This electronic medical record was generated, in whole or in part, using a voice recognition dictation system. Departure Departure: Impression: Primary Impression: UTI (urinary tract infection) Disposition: HOME, SELF-CARE Condition: STABLE Referrals: CAYETANO GILBERT INDU[employer] COORDINATION ENGINEER-C (PCP) Patient Instructions: - Urinary Tract Infection Scripts Cephalexin (KEFLEX) 500 Mg Capsule 1 CAP PO TID for uti for 5 Days, #15 CAP Prov: KACY MANN DO 09/19/18 Problem Qualifiers Primary Impression: UTI (urinary tract infection) Urinary tract infection type: acute cystitis Hematuria presence: without hematuria Qualified Codes: N30.00 - Acute cystitis without hematuria KACY MANN DO Sep 19, 2018 18:54
[2018-09-19 19:08] LABS: BACTERIA,URINE MOD /HPF (0-FEW); BILIRUBIN,URINE NEG (NEG); CLARITY,URINE HAZY; COLOR,URINE YELLOW; GLUCOSE,URINE NEG (NEG); NITRITE,URINE NEG (NEG); RBC,URINE RARE /HPF (0-2); UROBILINOGEN,URINE 0.2 mg/dL (0.2 mg/dL)
[2018-09-19 19:09] LABS: SQUAMOUS EPITHELIAL CELL,UR MOD /LPF
[2018-09-19] MEDS ORDERED: CEPH-264 PO (19:19)
== END 2018-09-19 19:28 | disposition home or self-care (01) ==
LOC: ER 18:28
DX: O23.11 Infections of bladder in pregnancy, first trimester (principal); Z3A.08 8 weeks gestation of pregnancy; Z87.440 Personal history of urinary (tract) infections; Z88.8 Allergy status to other drugs, medicaments and biological substances
CPT/HCPCS: 81001; 87086; 99283

== ENCOUNTER 2018-09-28 13:01 | Emergency (ER) | payer OTHER ==
[~2018-09-28] VITALS: Ht 167.6 cm; Wt 65.8 kg
[2018-09-28 13:59] LABS: BASO # 0.1 x10^3/uL (0.0-0.2); BASO % 1 % (0-3); EOS # 0.1 x10^3/uL (0.0-0.7); EOS % 1 % (0-3); HEMATOCRIT 34.9 % (36.0-47.0); HEMOGLOBIN 11.9 g/dL (12.0-15.5); LYMPH # 1.3 x10^3/uL (1.0-4.8); LYMPH % 24 % (24-48); MEAN CORPUSCULAR HEMOGLOBIN 30 pg (25-35); MEAN CORPUSCULAR HGB CONC 34 g/dL (31-37); MEAN CORPUSCULAR VOLUME 87 fL (79-100); MONO # 0.6 x10^3/uL (0.0-1.1); MONO % 10 % (0-9); NEUT # 3.6 x10^3uL (1.8-7.7); NEUT % 64 % (31-73); PLATELET COUNT 273 x10^3/uL (140-400); RED BLOOD COUNT 3.99 x10^6/uL (3.50-5.40); RED CELL DISTRIBUTION WIDTH 14.8 % (11.5-14.5); WHITE BLOOD COUNT 5.6 x10^3/uL (4.0-11.0)
[2018-09-28 14:12] LABS: ALBUMIN 3.3 g/dL (3.4-5.0); CALCIUM 8.4 mg/dL (8.5-10.1); CREATININE 0.5 mg/dL (0.6-1.0); GFR 158.9; POTASSIUM 3.6 mmol/L (3.5-5.1); TOTAL BILIRUBIN 0.5 mg/dL (0.2-1.0); TOTAL PROTEIN 6.6 g/dL (6.4-8.2)
--- NOTE | 2018-09-28 14:22 | PHYS DOC ---
Past History Past Medical History: Anxiety, Bipolar, Depression, Seizure, UTI Past Surgical History: No Surgical History Alcohol Use: None Drug Use: None Adult General Chief Complaint Chief Complaint: VAGINAL BLEEDING HPI HPI 17-year-old female presents with vaginal bleeding. Patient believes she is 9 weeks . She had some vaginal vomiting today on the toilet paper after she went to the restroom. She has had a miscarriage in the past and thought it would be best to come in and be evaluated. She denies any abdominal cramping or pain. She has not had fever or chills at home. She has been feeling normal otherwise. Review of Systems Review of Systems Constitutional: Denies fever or chills [] Eyes: Denies change in visual acuity, redness, or eye pain [] HENT: Denies nasal congestion or sore throat [] Respiratory: Denies cough or shortness of breath [] Cardiovascular: No additional information not addressed in HPI [] GI: Denies abdominal pain, nausea, vomiting, bloody stools or diarrhea [] : Denies dysuria or hematuria. Vaginal bleeding [] Musculoskeletal: Denies back pain or joint pain [] Integument: Denies rash or skin lesions [] Neurologic: Denies headache, focal weakness or sensory changes [] Endocrine: Denies polyuria or polydipsia [] All other systems were reviewed and found to be within normal limits, except as documented in this note. Allergies Allergies Allergies Coded Allergies Type Severity Reaction Last Updated Verified haloperidol Allergy Unknown 04/14/18 Yes quetiapine Allergy Unknown 09/06/18 Yes Physical Exam Physical Exam Constitutional: Well developed, well nourished, no acute distress, non-toxic appearance. [] HENT: Normocephalic, atraumatic, bilateral external ears normal, oropharynx moist, no oral exudates, nose normal. [] Eyes: PERRLA, EOMI, conjunctiva normal, no discharge. [] Neck: Normal range of motion, no tenderness, supple, no stridor. [] Cardiovascular:Heart rate regular rhythm, no murmur [] Lungs & Thorax: Bilateral breath sounds clear to auscultation [] Abdomen: Bowel sounds normal, soft, no tenderness, no masses, no pulsatile masses. [] Skin: Warm, dry, no erythema, no rash. [] Back: No tenderness, no CVA tenderness. [] Extremities: No tenderness, no cyanosis, no clubbing, ROM intact, no edema. [] Neurologic: Alert and oriented X 3, normal motor function, normal sensory function, no focal deficits noted. [] Psychologic: Affect normal, judgement normal, mood normal. [] Current Patient Data Vital Signs Vital Signs Date Time Temp Pulse Resp B/P (MAP) Pulse Ox O2 Delivery O2 Flow Rate FiO2 09/28/18 13:15 98.9 92 18 99 Room Air Lab Results Laboratory Tests Test 09/28/18 13:40 White Blood Count 5.6 x10^3/uL (4.0-11.0) Red Blood Count 3.99 x10^6/uL (3.50-5.40) Hemoglobin 11.9 g/dL (12.0-15.5) L Hematocrit 34.9 % (36.0-47.0) L Mean Corpuscular Volume 87 fL (79-100) Mean Corpuscular Hemoglobin 30 pg (25-35) Mean Corpuscular Hemoglobin Concent 34 g/dL (31-37) Red Cell Distribution Width 14.8 % (11.5-14.5) H Platelet Count 273 x10^3/uL (140-400) Neutrophils (%) (Auto) 64 % (31-73) Lymphocytes (%) (Auto) 24 % (24-48) Monocytes (%) (Auto) 10 % (0-9) H Eosinophils (%) (Auto) 1 % (0-3) Basophils (%) (Auto) 1 % (0-3) Neutrophils # (Auto) 3.6 x10^3uL (1.8-7.7) Lymphocytes # (Auto) 1.3 x10^3/uL (1.0-4.8) Monocytes # (Auto) 0.6 x10^3/uL (0.0-1.1) Eosinophils # (Auto) 0.1 x10^3/uL (0.0-0.7) Basophils # (Auto) 0.1 x10^3/uL (0.0-0.2) Sodium Level 137 mmol/L (136-145) Potassium Level 3.6 mmol/L (3.5-5.1) Chloride Level 104 mmol/L (98-107) Carbon Dioxide Level 25 mmol/L (21-32) Anion Gap 8 (6-14) Blood Urea Nitrogen 9 mg/dL (7-20) Creatinine 0.5 mg/dL (0.6-1.0) L Estimated GFR (Cockcroft-Gault) 158.9 BUN/Creatinine Ratio 18 (6-20) Glucose Level 91 mg/dL (70-99) Calcium Level 8.4 mg/dL (8.5-10.1) L Total Bilirubin 0.5 mg/dL (0.2-1.0) Aspartate Amino Transferase (AST) 37 U/L (15-37) Alanine Aminotransferase (ALT) 49 U/L (14-59) Alkaline Phosphatase 49 U/L (46-116) Total Protein 6.6 g/dL (6.4-8.2) Albumin 3.3 g/dL (3.4-5.0) L Albumin/Globulin Ratio 1.0 (1.0-1.7) EKG EKG [] Radiology/Procedures Radiology/Procedures [] Impressions: Examination: Obstetric ultrasound first trimester HISTORY: History of vaginal bleeding COMPARISON: 09/06/2018 FINDINGS: The uterus measures 9.3 x 9.0 x 6.5 cm. The cul-de-sac is normal. The right ovary measures 3.7 x 2.8 x 2.3 cm. The left ovary measures 3.0 x 2.0 x 2.7 cm. Blood flow identified in the right and left ovaries. There is a 2.8 cystic structure identified in the right ovary. Single living intrauterine identified with heart rate of 169 bpm. The [place]-rump length measures 2.4 cm corresponding to 9 weeks and 1 day. IMPRESSION: 1. Single living intrauterine with heart rate of 169 bpm. 2. 2.7 cm cyst right ovary. Electronically signed by: Celestino Briseno MD (09/28/2018 2:40 PM) [facility] DICTATED AND SIGNED BY: CELESTINO BRISENO MD DATE: 09/28/18 1434 CC: KACY MANN DO; CAYETANO GILBERT [employer] P[employer] MAKER METAL-[employer] Course & Med Decision Making Course & Med Decision Making Pertinent Labs and Imaging studies reviewed. (See chart for details) The patient's ultrasound does show a live intrauterine . Her labs are unremarkable. Her urinalysis is suggestive of UTI. Given the patient has been asymptomatic, said she is I will treat her UTI with Augmentin for 5 days. [] Dragon Disclaimer Dragon Disclaimer This electronic medical record was generated, in whole or in part, using a voice recognition dictation system. Departure Departure: Impression: Primary Impression: Additional Impressions: Vaginal bleeding affecting early UTI (urinary tract infection) in in first trimester Disposition: 01 HOME, SELF-CARE Condition: STABLE Referrals: CAYETANO GILBERT [employer] P[employer] MAKER MET[employer]-C (PCP) Patient Instructions: , Urinary Tract Infection, Cdri-fb-[id number] Scripts Amoxicillin/Potassium Clav (AUGMENTIN 875-125 TABLET) 1 Each Tablet 1 TAB PO BID for uti for 5 Days, #10 TAB Prov: KACY MANN DO 09/28/18 Problem Qualifiers Primary Impression: Weeks of gestation: 9 weeks Qualified Codes: Z3A.09 - 9 weeks gestation of KACY MANN DO Sep 28, 2018 14:22
[2018-09-28 14:43] LABS: BACTERIA,URINE MOD /HPF (0-FEW); BILIRUBIN,URINE NEG (NEG); CLARITY,URINE HAZY; COLOR,URINE YELLOW; GLUCOSE,URINE NEG (NEG); NITRITE,URINE NEG (NEG); RBC,URINE 0 /HPF (0-2); SQUAMOUS EPITHELIAL CELL,UR MOD /LPF; UROBILINOGEN,URINE 0.2 mg/dL (0.2 mg/dL)
--- NOTE | 2018-09-28 14:45 | RAD ---
Examination: Obstetric ultrasound first trimester HISTORY: History of vaginal bleeding COMPARISON: 09/06/2018 FINDINGS: The uterus measures 9.3 x 9.0 x 6.5 cm. The cul-de-sac is normal. The right ovary measures 3.7 x 2.8 x 2.3 cm. The left ovary measures 3.0 x 2.0 x 2.7 cm. Blood flow identified in the right and left ovaries. There is a 2.8 cystic structure identified in the right ovary. Single living intrauterine identified with heart rate of 169 bpm. The crown-rump length measures 2.4 cm corresponding to 9 weeks and 1 day. IMPRESSION: 1. Single living intrauterine with heart rate of 169 bpm. 2. 2.7 cm cyst right ovary. Electronically signed by: Celestino Briseno MD (09/28/2018 2:40 PM) [place] [id number]
[2018-09-28 15:00] VITALS: BP 118/64
[2018-09-28] MEDS ORDERED: AMOX1TAB61 PO (15:07)
== END 2018-09-28 15:10 | disposition home or self-care (01) ==
LOC: ER 13:01
DX: O46.91 Antepartum hemorrhage, unspecified, first trimester (principal); O23.41 Unspecified infection of urinary tract in pregnancy, first trimester; O99.341 Other mental disorders complicating pregnancy, first trimester; F41.9 Anxiety disorder, unspecified; F31.9 Bipolar disorder, unspecified; Z3A.09 9 weeks gestation of pregnancy; Z88.8 Allergy status to other drugs, medicaments and biological substances
CPT/HCPCS: 36415; 76801; 80053; 81001; 84702; 85025; 87086; 99284-25

== ENCOUNTER 2019-01-10 13:28 | Emergency (ER) | payer OTHER ==
[~2019-01-10] VITALS: Ht 167.6 cm; Wt 74.0 kg
[~2019-01-10 13:28] MED LIST changes: +AMOX1TAB61 PO
[2019-01-10 14:09] LABS: BILIRUBIN,URINE NEG (NEG); CLARITY,URINE CLOUDY; COLOR,URINE YELLOW; GLUCOSE,URINE NEG (NEG); NITRITE,URINE NEG (NEG); RBC,URINE 0 /HPF (0-2); UROBILINOGEN,URINE 0.2 mg/dL (0.2 mg/dL)
[2019-01-10 14:10] LABS: BACTERIA,URINE FEW /HPF (0-FEW); SQUAMOUS EPITHELIAL CELL,UR MOD /LPF
--- NOTE | 2019-01-10 14:43 | PHYS DOC ---
Past History Past Medical History: Anxiety, Bipolar, Depression, Seizure, UTI Past Surgical History: No Surgical History Alcohol Use: None Drug Use: None Adult General Chief Complaint Chief Complaint: ABDOMINAL PAIN IN HPI HPI Patient is a 18-year-old female presents with lower abdominal pain, bilaterally for approximately 30 minutes prior to arrival. Patient is 2 para 0 with a miscarriage in May 2018. Patient is uncertain as to what her blood type is. Patient has been receiving care from Dr. Bright. She denies any vaginal bleeding or discharge. Denies any trauma. She reports that she is approximately 23 weeks . She has taken nothing to help with the pain. Nothing seems to make the pain better or worse. Reports it is a cramping pain. No nausea, vomiting, nor diarrhea.[] Review of Systems Review of Systems Constitutional: Denies fever or chills [] Eyes: Denies change in visual acuity, redness, or eye pain [] HENT: Denies nasal congestion or sore throat [] Respiratory: Denies cough or shortness of breath [] Cardiovascular: No chest pain or palpitations[] GI: The history of present illness[] : Denies dysuria or hematuria [] Musculoskeletal: Denies back pain or joint pain [] Integument: Denies rash or skin lesions [] Neurologic: Denies headache, focal weakness or sensory changes [] Endocrine: Denies polyuria or polydipsia [] All other systems were reviewed and found to be within normal limits, except as documented in this note. Allergies Allergies Allergies Coded Allergies Type Severity Reaction Last Updated Verified haloperidol Allergy Unknown 04/14/18 Yes quetiapine Allergy Unknown 09/06/18 Yes Physical Exam Physical Exam Constitutional: Well developed, well nourished, no acute distress, non-toxic appearance. [] HENT: Normocephalic, atraumatic, bilateral external ears normal, oropharynx moist, no oral exudates, nose normal. [] Eyes: PERRLA, EOMI, conjunctiva normal, no discharge. [] Neck: Normal range of motion, no tenderness, supple, no stridor. [] Cardiovascular:Heart rate is tachycardic in the low 100s, with a regular rhythm, no murmur [] Lungs & Thorax: Bilateral breath sounds clear to auscultation [] Abdomen: Bowel sounds normal, soft, no tenderness, fundus is just superior to the umbilicus, heart tones are present, she is able to sit up and lay back without any difficulty, no pulsatile masses. [] Skin: Warm, dry, no erythema, no rash. [] Back: No tenderness, no CVA tenderness. [] Extremities: No tenderness, no cyanosis, no clubbing, ROM intact, no edema. [] Neurologic: Alert and oriented X 3, normal motor function, normal sensory function, no focal deficits noted. [] Psychologic: Affect normal, judgement normal, mood normal. [] Current Patient Data Vital Signs Vital Signs Date Time Temp Pulse Resp B/P (MAP) Pulse Ox O2 Delivery O2 Flow Rate FiO2 01/10/19 13:49 98.2 104 18 100 Room Air Lab Results Laboratory Tests Test 01/10/19 13:48 Urine Collection Type Unknown Urine Color Yellow Urine Clarity Cloudy Urine pH 7.5 Urine Specific [place] 1.015 Urine Protein Neg (NEG-TRACE) Urine Glucose (UA) Neg mg/dL (NEG) Urine Ketones (Stick) Neg mg/dL (NEG) Urine Blood Neg (NEG) Urine Nitrite Neg (NEG) Urine Bilirubin Neg (NEG) Urine Urobilinogen Dipstick 0.2 mg/dL (0.2 mg/dL) Urine Leukocyte Esterase Mod (NEG) Urine RBC 0 /HPF (0-2) Urine WBC 5-10 /HPF (0-4) Urine Squamous Epithelial Cells Mod /LPF Urine Bacteria Few /HPF (0-FEW) EKG EKG [] Radiology/Procedures Radiology/Procedures Ultrasound showed intrauterine , heart rate in the 150s.[] Course & Med Decision Making Course & Med Decision Making Pertinent Labs and Imaging studies reviewed. (See chart for details) ED course: Patient arrived, was placed in bed, and tolerated exam well. She was transported to and from [facility] emergency department with any comfort patient's. After return of laboratory and imaging studies, these were discussed with the patient voiced understanding. All questions were answered. Patient was discharged in improved condition. Medical decision making: There is no evidence of an ectopic . Believe that the white cells in the urine are more due to contamination rather than urinary tract infection, however will cover for urinary tract infection. There is no evidence of dehydration, by mouth intolerance/ketonuria. No evidence of intractable pain. No evidence of pyelonephritis. We'll attempt treatment as an outpatient and have patient follow up with her [facility] tomorrow.[] [place] Disclaimer Dragon Disclaimer This electronic medical record was generated, in whole or in part, using a voice recognition dictation system. Departure Departure: Impression: Primary Impression: Urinary tract infection Additional Impression: Abdominal pain in Disposition: HOME, SELF-CARE Condition: IMPROVED Referrals: CAYETANO GILBERT PAYROLL ADMINISTRATOR-C (PCP) Follow-up tomorrow Patient Instructions: Abdominal Pain During , Urinary Tract Infection Additional Instructions: Drink plenty of fluids. Follow-up with your [facility] or primary care physician tomorrow. Return to the ER if worsening pain or any other concerns. Scripts Acetaminophen (TYLENOL) 325 Mg Tablet 1-2 TAB PO QID for pain, #60 TAB 0 Refills Prov: ELNA CHUNG DO 01/10/19 Cephalexin (KEFLEX) 500 Mg Capsule 500 MG PO TID for UTI for 10 Days, #30 CAP Prov: ELAN CHUNG DO 01/10/19 Problem Qualifiers Primary Impression: Urinary tract infection Urinary tract infection type: site unspecified Hematuria presence: without hematuria Qualified Codes: N39.0 - Urinary tract infection, site not specified Additional Impression: Abdominal pain in Trimester: second trimester Qualified Codes: O26.892 - Other specified related conditions, second trimester; R10.9 - Unspecified abdominal pain ELAN CHUNG DO January 10, 2019 14:43
[2019-01-10] MEDS ORDERED: IV NORMAL SALINE 1,000ML 1,000 ML IV ONE (14:45)
[2019-01-10 14:57] LABS: BASO # 0.1 x10^3/uL (0.0-0.2); BASO % 1 % (0-3); EOS # 0.1 x10^3/uL (0.0-0.7); EOS % 0 % (0-3); HEMATOCRIT 33.3 % (36.0-47.0); HEMOGLOBIN 11.4 g/dL (12.0-15.5); LYMPH % 14 % (24-48); MEAN CORPUSCULAR HEMOGLOBIN 31 pg (25-35); MEAN CORPUSCULAR HGB CONC 34 g/dL (31-37); MEAN CORPUSCULAR VOLUME 90 fL (79-100); MONO # 0.7 x10^3/uL (0.0-1.1); MONO % 5 % (0-9); NEUT # 11.2 x10^3uL (1.8-7.7); NEUT % 80 % (31-73); PLATELET COUNT 280 x10^3/uL (140-400); RED BLOOD COUNT 3.72 x10^6/uL (3.50-5.40); RED CELL DISTRIBUTION WIDTH 13.7 % (11.5-14.5)
[2019-01-10 15:10] LABS: ALBUMIN 2.7 g/dL (3.4-5.0); ALBUMIN/GLOBULIN RATIO 0.7 (1.0-1.7); CALCIUM 8.1 mg/dL (8.5-10.1); CREATININE 0.5 mg/dL (0.6-1.0); GFR 157.3; POTASSIUM 3.8 mmol/L (3.5-5.1); TOTAL BILIRUBIN 0.3 mg/dL (0.2-1.0); TOTAL PROTEIN 6.6 g/dL (6.4-8.2)
[2019-01-10 16:10] VITALS: BP 118/80
[2019-01-10] MEDS ORDERED: ACET325T9 PO (16:26)
[2019-01-10] MEDS ORDERED: CEPH-264 PO (16:26)
--- NOTE | 2019-01-10 17:21 | RAD ---
Examination: Obstetric ultrasound greater than 14 weeks HISTORY: History of lower abdominal pain, COMPARISON: None available. FINDINGS: The anatomy is limited. Single living intrauterine identified with heart rate of 150 bpm. LMP 07/29/2018 Clinical age 23 weeks and 4 days with estimated date of delivery 05/05/2019 by LMP. Ultrasound age is 23 weeks and 2 days with estimated date of delivery 05/07/2019. Estimated weight 534 g. Cephalic index measures 79.6 head circumference to abdominal circumference 1.2. Femur length to biparietal diameter 65.1. Femur length to head circumference 17.7. Femur length to abdominal circumference 21.6. Biparietal diameter measures 5.9 cm corresponding to 24 weeks and 2 days. Head circumference measures 21.7 corresponding 23 weeks and 6 days. Abdominal circumference measures 17.9 cm corresponding to 22 weeks and 5 days. Femur length measures 3.8 cm corresponding to 22 weeks and 3 days. position is cephalic. Placenta is in the posterior wall. Placenta grade is grade 0. IMPRESSION: Single living intrauterine with heart rate of 150 bpm. Electronically signed by: Celestino Briseno MD (01/10/2019 5:17 PM) [facility]
== END 2019-01-10 16:38 | disposition home or self-care (01) ==
LOC: ER 13:28
DX: O23.42 Unspecified infection of urinary tract in pregnancy, second trimester (principal); O99.342 Other mental disorders complicating pregnancy, second trimester; F31.9 Bipolar disorder, unspecified; F41.9 Anxiety disorder, unspecified; Z87.440 Personal history of urinary (tract) infections; Z3A.23 23 weeks gestation of pregnancy; Z88.8 Allergy status to other drugs, medicaments and biological substances
CPT/HCPCS: 36415; 76805; 76817; 80053; 81001; 83690; 85025; 86900; 86901; 87086; 99285-25; J7030

== ENCOUNTER 2019-03-03 11:26 | Emergency (ER) | payer OTHER ==
[~2019-03-03] VITALS: Ht 167.6 cm; Wt 81.1 kg
[~2019-03-03 11:26] MED LIST changes: +ACET325T9 PO; +RANI-376 PO; -RANI150T21 PO
[2019-03-03 11:38] VITALS: BP 113/64
[2019-03-03] MEDS ORDERED: AZIT250T PO (12:02)
--- NOTE | 2019-03-03 12:02 | PHYS DOC ---
Past History Past Medical History: Anxiety, Bipolar, Depression, Seizure, UTI Past Surgical History: No Surgical History Additional Smoking Information: 08/26 PPD Alcohol Use: None Drug Use: None Adult General Chief Complaint Chief Complaint: COUGH HPI HPI Patient is a 18-year-old female who presents with complaint of productive cough for the last couple of weeks that she states is progressively getting worse. She indicates that she is 31 weeks and she is concerned about developing pneumonia if she doesn't get this treated. She denies any fever. She denies any chest pain or shortness of breath but does admit to chest starting to get sore from the coughing. She denies any abdominal pain, cramping or vaginal bleeding. She states that nothing is improving her symptoms.[] Review of Systems Review of Systems Constitutional: Denies fever or chills [] Respiratory: Complains of productive cough without shortness of breath [] Cardiovascular: No additional information not addressed in HPI [] GI: Denies abdominal pain, nausea, vomiting or diarrhea [] Integument: Denies rash or skin lesions [] Neurologic: Denies headache, focal weakness or sensory changes [] All other systems were reviewed and found to be within normal limits, except as documented in this note. Allergies Allergies Allergies Coded Allergies Type Severity Reaction Last Updated Verified haloperidol Allergy Unknown 04/14/18 Yes quetiapine Allergy Unknown 09/06/18 Yes Physical Exam Physical Exam Constitutional: Well developed, well nourished, no acute distress, non-toxic appearance. [] HENT: Normocephalic, atraumatic, bilateral external ears normal, oropharynx moist, no oral exudates, nose normal. [] Eyes: PERRLA, EOMI, conjunctiva normal, no discharge. [] Neck: Normal range of motion, no tenderness, supple, no stridor. [] Cardiovascular:Heart rate regular rhythm, no murmur [] Lungs & Thorax: Bilateral breath sounds clear to auscultation [] Extremities: No tenderness, no cyanosis, no clubbing, ROM intact, no edema. [] Current Patient Data Vital Signs Vital Signs Date Time Temp Pulse Resp B/P (MAP) Pulse Ox O2 Delivery O2 Flow Rate FiO2 03/03/19 11:38 98.1 79 21 99 Room Air EKG EKG [] Radiology/Procedures Radiology/Procedures [] Course & Med Decision Making Course & Med Decision Making Pertinent Labs and Imaging studies reviewed. (See chart for details) [] Dragon Disclaimer Dragon Disclaimer This electronic medical record was generated, in whole or in part, using a voice recognition dictation system. Departure Departure: Impression: Primary Impression: Acute bronchitis Disposition: 01 HOME, SELF-CARE Condition: STABLE Referrals: CAYETANO GILBERT APPLICATION RELEASE MANAGER-C (PCP) Patient Instructions: Acute Bronchitis Scripts Azithromycin (ZITHROMAX) 250 Mg Tablet 1 PKG PO UD for infection, #6 TAB Prov: ETHAN HARRELL Jr. DO 03/03/19 Problem Qualifiers Primary Impression: Acute bronchitis Bronchitis organism: unspecified organism Qualified Codes: J20.9 - Acute bronchitis, unspecified ETHAN HARRELL Jr. DO Mar 03, 2019 12:02
== END 2019-03-03 12:09 | disposition home or self-care (01) ==
LOC: ER 11:26
DX: O99.513 Diseases of the respiratory system complicating pregnancy, third trimester (principal); J20.9 Acute bronchitis, unspecified; O23.43 Unspecified infection of urinary tract in pregnancy, third trimester; O99.333 Smoking (tobacco) complicating pregnancy, third trimester; Z88.8 Allergy status to other drugs, medicaments and biological substances; Z3A.31 31 weeks gestation of pregnancy
CPT/HCPCS: 99283

== ENCOUNTER 2019-03-29 18:45 | Emergency (ER) | payer OTHER ==
[~2019-03-29] VITALS: Ht 167.6 cm; Wt 81.1 kg
[~2019-03-29 18:45] MED LIST changes: +AZIT250T PO
[2019-03-29] MEDS ORDERED: IV RINGERS SOLUTION,LACTATED 1,000 ML IV SCH (18:54)
[2019-03-29] MEDS ORDERED: MAGNESIUM SULFATE 2GM 50 ML IV ONE (19:00)
--- NOTE | 2019-03-29 19:01 | ED.ADGEN ---
Past History Past Medical History: Anxiety, Bipolar, Depression, Seizure, UTI Past Surgical History: No Surgical History Alcohol Use: None Drug Use: None Adult General Chief Complaint Chief Complaint ".. I feel like I am in labor... this is my second preg. I miscarried the lst.... I due in apr..... I am having contractions... my chester have not broke... yet. HPI HPI Patient is a 18 year old female who presents with reported and due in [facility]. Pt. follows with Dr. Ramirez. Patient denies any bleeding. Patient denies any discharge. Patient denies any trauma. Patient has been taking vitamins. No history of STDs. 5 lifetime sex partners. Review of Systems Review of Systems Constitutional: Denies fever or chills [] Eyes: Denies change in visual acuity, redness, or eye pain [] HENT: Denies nasal congestion or sore throat [] Respiratory: Denies cough or shortness of breath [] Cardiovascular: No additional information not addressed in HPI [] GI: Complaints of abdominal contraction pain, nausea, . Denies vomiting, bloody stools or diarrhea [] : Denies dysuria or hematuria [] Musculoskeletal: Denies back pain or joint pain [] Integument: Denies rash or skin lesions [] Neurologic: Denies headache, focal weakness or sensory changes [] Endocrine: Denies polyuria or polydipsia [] All other systems were reviewed and found to be within normal limits, except as documented in this note. Family History Family History . Noncontributory Current Medications Current Medications Current Medications Medications (Trade) Dose Ordered Sig/[facility] Start Time Stop Time Status Last Admin Dose Admin Famotidine (Pepcid Vial) 20 mg 1X ONCE 03/29/19 19:15 03/29/19 19:16 DC 03/29/19 22:27 20 MG Lactated Ringer's 1,000 ml @ 1,000 mls/hr Q1H 03/29/19 18:54 03/29/19 19:53 DC 03/29/19 22:28 1,000 MLS/HR Magnesium Sulfate 50 ml @ 25 mls/hr 1X ONCE 03/29/19 19:00 03/29/19 20:59 DC 03/29/19 22:27 25 MLS/HR Ondansetron HCl (Zofran) 4 mg 1X ONCE 03/29/19 19:15 03/29/19 19:16 DC 03/29/19 22:28 4 MG Allergies Allergies Allergies Coded Allergies Type Severity Reaction Last Updated Verified haloperidol Allergy Unknown 04/14/18 Yes quetiapine Allergy Unknown 09/06/18 Yes Physical Exam Physical Exam Constitutional: Well developed, well nourished, mild distress, non-toxic appearance. [] HENT: Normocephalic, atraumatic, bilateral external ears normal, oropharynx moist, no oral exudates, nose normal. [] Eyes: PERRLA, EOMI, conjunctiva normal, no discharge. [] Glasses. Neck: Normal range of motion, no tenderness, supple, no stridor. [] Cardiovascular:Heart rate regular rhythm, no murmur [] Lungs & Thorax: Bilateral breath sounds clear to auscultation [] Abdomen: Bowel sounds normal, soft, no tenderness, no masses, no pulsatile masses. [] heart rate 152. Cervix is closed. No obvious bleeding. No significant cervical motion tenderness. Very mild discharge Skin: Warm, dry, no erythema, no rash. [] Back: No tenderness, no CVA tenderness. [] Extremities: No tenderness, no cyanosis, no clubbing, ROM intact, no edema. [] Neurologic: Alert and oriented X 3, normal motor function, normal sensory function, no focal deficits noted. [] Psychologic: Affect normal, judgement normal, mood normal. [] Current Patient Data Vital Signs Vital Signs Date Time Temp Pulse Resp B/P (MAP) Pulse Ox O2 Delivery O2 Flow Rate FiO2 03/30/19 03:31 98.7 86 32 97 Room Air 03/30/19 00:10 120/70 (87) Lab Results Laboratory Tests Test 03/29/19 18:55 03/29/19 19:00 Urine Collection Type Unknown Urine Color Yellow Urine Clarity Hazy Urine pH 6.[address] 1.025 Urine Protein Neg (NEG-TRACE) Urine Glucose (UA) Neg mg/dL (NEG) Urine Ketones (Stick) Neg mg/dL (NEG) Urine Blood Neg (NEG) Urine Nitrite Neg (NEG) Urine Bilirubin Neg (NEG) Urine Urobilinogen Dipstick 0.2 mg/dL (0.2 mg/dL) Urine Leukocyte Esterase Neg (NEG) Urine RBC 0 /HPF (0-2) Urine WBC 5-10 /HPF (0-4) Urine Squamous Epithelial Cells Many /LPF Urine Bacteria Mod /HPF (0-FEW) Urine Mucus Marked /LPF Maternal Serum HCG Beta Subunit 6829 mIU/mL (0-6) H Sodium Level 136 mmol/L (136-145) Potassium Level 3.8 mmol/L (3.5-5.1) Chloride Level 106 mmol/L (98-107) Carbon Dioxide Level 19 mmol/L (21-32) L Anion Gap 11 (6-14) Blood Urea Nitrogen 10 mg/dL (7-20) Creatinine 0.5 mg/dL (0.6-1.0) L Estimated GFR (Cockcroft-Gault) 157.3 Glucose Level 90 mg/dL (70-99) Calcium Level 8.4 mg/dL (8.5-10.1) L Total Bilirubin 0.2 mg/dL (0.2-1.0) Direct Bilirubin 0.1 mg/dL (0.0-0.2) Aspartate Amino Transferase (AST) 27 U/L (15-37) Alanine Aminotransferase (ALT) 26 U/L (14-59) Alkaline Phosphatase 121 U/L (46-116) H Total Protein 6.3 g/dL (6.4-8.2) L Albumin 2.8 g/dL (3.4-5.0) L Lipase 97 U/L (73-393) Urine Opiates Screen Pos (NEG) Urine Methadone Screen Neg (NEG) Urine Barbiturates Neg (NEG) Urine Phencyclidine Screen Neg (NEG) Urine Amphetamine/Methamphetamine Neg (NEG) Urine Benzodiazepines Screen Neg (NEG) Urine Cocaine Screen Neg (NEG) Urine Cannabinoids Screen Neg (NEG) Urine Ethyl Alcohol Neg (NEG) Treponema pallidum Antibody Nonreactive (Nonreactive) Hepatitis A IgM Antibody Nonreactive (Nonreactive) Hepatitis B Surface Antigen Nonreactive (Nonreactive) Hepatitis B Core IgM Antibody Nonreactive (Nonreactive) Hepatitis C IgG Antibody Reactive (Nonreactive) HIV (1&2) Antibody Screen Nonreactive (Nonreactive) White Blood Count 10.3 x10^3/uL (4.0-11.0) Red Blood Count 3.97 x10^6/uL (3.50-5.40) Hemoglobin 11.4 g/dL (12.0-15.5) L Hematocrit 34.3 % (36.0-47.0) L Mean Corpuscular Volume 86 fL (79-100) Mean Corpuscular Hemoglobin 29 pg (25-35) Mean Corpuscular Hemoglobin Concent 33 g/dL (31-37) Red Cell Distribution Width 15.8 % (11.5-14.5) H Platelet Count 256 x10^3/uL (140-400) Neutrophils (%) (Auto) 70 % (31-73) Lymphocytes (%) (Auto) 22 % (24-48) L Monocytes (%) (Auto) 6 % (0-9) Eosinophils (%) (Auto) 2 % (0-3) Basophils (%) (Auto) 1 % (0-3) Neutrophils # (Auto) 7.2 x10^3uL (1.8-7.7) Lymphocytes # (Auto) 2.2 x10^3/uL (1.0-4.8) Monocytes # (Auto) 0.7 x10^3/uL (0.0-1.1) Eosinophils # (Auto) 0.2 x10^3/uL (0.0-0.7) Basophils # (Auto) 0.1 x10^3/uL (0.0-0.2) Prothrombin Time 10.0 SEC (9.4-11.4) Prothrombin Time INR 1.0 (0.9-1.1) Activated Partial Thromboplast Time 30 SEC (23-33) Microbiology 03/29/19 Wet Prep - Final, Complete 03/29/19 Urine Culture - Final, Complete 03/29/19 Urine Culture Result 1 (LENCHO) - Final, Complete Laboratory Tests Test 03/29/19 18:55 03/29/19 19:00 Urine Collection Type Unknown Urine Color Yellow Urine Clarity Hazy Urine pH 6.[address] 1.025 Urine Protein Neg (NEG-TRACE) Urine Glucose (UA) Neg mg/dL (NEG) Urine Ketones (Stick) Neg mg/dL (NEG) Urine Blood Neg (NEG) Urine Nitrite Neg (NEG) Urine Bilirubin Neg (NEG) Urine Urobilinogen Dipstick 0.2 mg/dL (0.2 mg/dL) Urine Leukocyte Esterase Neg (NEG) Urine RBC 0 /HPF (0-2) Urine WBC 5-10 /HPF (0-4) Urine Squamous Epithelial Cells Many /LPF Urine Bacteria Mod /HPF (0-FEW) Urine Mucus Marked /LPF Maternal Serum HCG Beta Subunit 6829 mIU/mL (0-6) H Sodium Level 136 mmol/L (136-145) Potassium Level 3.8 mmol/L (3.5-5.1) Chloride Level 106 mmol/L (98-107) Carbon Dioxide Level 19 mmol/L (21-32) L Anion Gap 11 (6-14) Blood Urea Nitrogen 10 mg/dL (7-20) Creatinine 0.5 mg/dL (0.6-1.0) L Estimated GFR (Cockcroft-Gault) 157.3 Glucose Level 90 mg/dL (70-99) Calcium Level 8.4 mg/dL (8.5-10.1) L Total Bilirubin 0.2 mg/dL (0.2-1.0) Direct Bilirubin 0.1 mg/dL (0.0-0.2) Aspartate Amino Transferase (AST) 27 U/L (15-37) Alanine Aminotransferase (ALT) 26 U/L (14-59) Alkaline Phosphatase 121 U/L (46-116) H Total Protein 6.3 g/dL (6.4-8.2) L Albumin 2.8 g/dL (3.4-5.0) L Lipase 97 U/L (73-393) Urine Opiates Screen Pos (NEG) Urine Methadone Screen Neg (NEG) Urine Barbiturates Neg (NEG) Urine Phencyclidine Screen Neg (NEG) Urine Amphetamine/Methamphetamine Neg (NEG) Urine Benzodiazepines Screen Neg (NEG) Urine Cocaine Screen Neg (NEG) Urine Cannabinoids Screen Neg (NEG) Urine Ethyl Alcohol Neg (NEG) Treponema pallidum Antibody Nonreactive (Nonreactive) Hepatitis A IgM Antibody Nonreactive (Nonreactive) Hepatitis B Surface Antigen Nonreactive (Nonreactive) Hepatitis B Core IgM Antibody Nonreactive (Nonreactive) Hepatitis C IgG Antibody Reactive (Nonreactive) HIV (1&2) Antibody Screen Nonreactive (Nonreactive) White Blood Count 10.3 x10^3/uL (4.0-11.0) Red Blood Count 3.97 x10^6/uL (3.50-5.40) Hemoglobin 11.4 g/dL (12.0-15.5) L Hematocrit 34.3 % (36.0-47.0) L Mean Corpuscular Volume 86 fL (79-100) Mean Corpuscular Hemoglobin 29 pg (25-35) Mean Corpuscular Hemoglobin Concent 33 g/dL (31-37) Red Cell Distribution Width 15.8 % (11.5-14.5) H Platelet Count 256 x10^3/uL (140-400) Neutrophils (%) (Auto) 70 % (31-73) Lymphocytes (%) (Auto) 22 % (24-48) L Monocytes (%) (Auto) 6 % (0-9) Eosinophils (%) (Auto) 2 % (0-3) Basophils (%) (Auto) 1 % (0-3) Neutrophils # (Auto) 7.2 x10^3uL (1.8-7.7) Lymphocytes # (Auto) 2.2 x10^3/uL (1.0-4.8) Monocytes # (Auto) 0.7 x10^3/uL (0.0-1.1) Eosinophils # (Auto) 0.2 x10^3/uL (0.0-0.7) Basophils # (Auto) 0.1 x10^3/uL (0.0-0.2) Prothrombin Time 10.0 SEC (9.4-11.4) Prothrombin Time INR 1.0 (0.9-1.1) Activated Partial Thromboplast Time 30 SEC (23-33) Microbiology 03/29/19 Wet Prep - Final, Complete 03/29/19 Urine Culture - Final, Complete 03/29/19 Urine Culture Result 1 (LENCHO) - Final, Complete EKG EKG [] Radiology/Procedures Radiology/Procedures Ultrasound shows cephalic position. See formal report when available.[] No cute abnormalities noted. Course & Med Decision Making Course & Med Decision Making Pertinent Labs and Imaging studies reviewed. (See chart for details) Patient follow-up PLASTIC PANEL INSTALLER. Patient return if any concerns. Patient continue vitamins. Patient take only Tylenol for pain. Patient's discomfort had resolved by the time of discharge. [] Final Impression Final Impression 1. Premature labor contractions 2. Estimated DC 05/08/19 3. Preg. 34:6 days 4. Blood type A+ 5. Beta 6829 6. Anemia 11.4 hgb[] Dragon Disclaimer Dragon Disclaimer This electronic medical record was generated, in whole or in part, using a voice recognition dictation system. Dragon Disclaimer This chart was dictated in whole or in part using Voice Recognition software in a busy, high-work load, and often noisy Emergency Department environment. It may contain unintended and wholly unrecognized errors or omissions. JHONATHAN BOND MD Mar 29, 2019 19:01
[2019-03-29] MEDS ORDERED: FAMOTIDINE 20 MG/2 ML VIAL IVP ONE (19:15)
[2019-03-29] MEDS ORDERED: ONDANSETRON PF 4 MG/2 ML VIAL. IV ONE (19:15)
[2019-03-29 19:16] LABS: BASO # 0.1 x10^3/uL (0.0-0.2); BASO % 1 % (0-3); EOS # 0.2 x10^3/uL (0.0-0.7); EOS % 2 % (0-3); HEMATOCRIT 34.3 % (36.0-47.0); HEMOGLOBIN 11.4 g/dL (12.0-15.5); LYMPH # 2.2 x10^3/uL (1.0-4.8); LYMPH % 22 % (24-48); MEAN CORPUSCULAR HEMOGLOBIN 29 pg (25-35); MEAN CORPUSCULAR HGB CONC 33 g/dL (31-37); MEAN CORPUSCULAR VOLUME 86 fL (79-100); MONO # 0.7 x10^3/uL (0.0-1.1); MONO % 6 % (0-9); NEUT # 7.2 x10^3uL (1.8-7.7); NEUT % 70 % (31-73); PLATELET COUNT 256 x10^3/uL (140-400); RED BLOOD COUNT 3.97 x10^6/uL (3.50-5.40); RED CELL DISTRIBUTION WIDTH 15.8 % (11.5-14.5); WHITE BLOOD COUNT 10.3 x10^3/uL (4.0-11.0)
[2019-03-29 19:21] LABS: BARBITURATES NEG (NEG); BENZODIAZEPINES NEG (NEG); CANNABINOIDS NEG (NEG); COCAINE NEG (NEG); METHADONE NEG (NEG); OPIATES POS (NEG); PHENCYCLIDINE NEG (NEG)
[2019-03-29 19:22] LABS: AMPHETAMINE/METHAMPHETAMINE NEG (NEG)
[2019-03-29 19:25] LABS: CLARITY,URINE HAZY; COLOR,URINE YELLOW
[2019-03-29 19:26] LABS: BACTERIA,URINE MOD /HPF (0-FEW); BILIRUBIN,URINE NEG (NEG); GLUCOSE,URINE NEG (NEG); NITRITE,URINE NEG (NEG); RBC,URINE 0 /HPF (0-2); SQUAMOUS EPITHELIAL CELL,UR MANY /LPF; UROBILINOGEN,URINE 0.2 mg/dL (0.2 mg/dL)
[2019-03-29 19:30] LABS: ALBUMIN 2.8 g/dL (3.4-5.0); CALCIUM 8.4 mg/dL (8.5-10.1); CREATININE 0.5 mg/dL (0.6-1.0); DIRECT BILIRUBIN 0.1 mg/dL (0.0-0.2); GFR 157.3; POTASSIUM 3.8 mmol/L (3.5-5.1); TOTAL BILIRUBIN 0.2 mg/dL (0.2-1.0); TOTAL PROTEIN 6.3 g/dL (6.4-8.2)
--- NOTE | 2019-03-29 21:05 | RAD ---
Limited obstetric pelvic ultrasound 03/29/2019 INDICATION: Contractions COMPARISON: Ultrasound pelvis January 10, 2019 TECHNIQUE: Limited sonographic evaluation of the pelvis was performed utilizing grayscale imaging. FINDINGS: Single intrauterine gestation is identified with heart tones measuring 125 bpm. Placenta is identified along the posterior wall, grade 1. movement and cardiac activity are identified. Fluid is identified within the bladder and stomach is visualized. Fetus is in cephalic position. There is normal amniotic fluid with CAMILA measuring 12.3 cm. Biparietal diameter: 8.76 cm compatible gestational age of 35 weeks, 3 days Head circumference: 32.2 cm compatible gestational age of 36 weeks 3 days Abdominal circumference: 28.39 cm compatible gestational age of 32 weeks 3 days Femur length: 6.8 cm compatible with gestational age of 35 weeks 0 days HC/AC: 1.13 FL/BPD: 77.7 FL/HC: 21.1 FL/AC: 24.0 Cephalic index: 83.1 Estimated weight: 2290 g Estimated gestational age: 34 weeks 6 days Sonographic EDC: 05/04/2019 IMPRESSION: Single viable intrauterine gestation is identified with heart tones measuring 125 bpm and estimated gestational age of 34 weeks 6 days. Electronically signed by: Josefina Pitts MD (03/29/2019 9:02 PM) [facility]
[2019-03-30 03:31] VITALS: BP 124/60
[2019-04-02 12:09] LABS: HCV ULTRA QUANT PCR 62700 IU/mL (.)
== END 2019-03-30 00:10 | disposition home or self-care (01) ==
LOC: ER 18:45
DX: O60.03 Preterm labor without delivery, third trimester (principal); O99.013 Anemia complicating pregnancy, third trimester; O23.43 Unspecified infection of urinary tract in pregnancy, third trimester; Z88.8 Allergy status to other drugs, medicaments and biological substances; Z3A.34 34 weeks gestation of pregnancy
CPT/HCPCS: 76815; 80048; 80076; 80307; 81001; 83690; 84702; 85025; 85610; 85730; 86592; 86703; 86705; 86709; 86803; 86850; 86900; 86901; 87086; 87340; 87491; 87521; 87591; 96374; 96375; 99285; J2405; J3475; J3490; J7120; Q0111

== ENCOUNTER → 2019-11-10 | Outpatient (CLI) | payer MEDICAID, OTHER ==
--- NOTE | 2019-11-10 15:38 | RAD ---
INDICATION: Vaginal bleeding COMPARISON: None. TECHNIQUE: Grayscale and color ultrasound images uterus and adnexa. Transabdominal and transvaginal images obtained. Transvaginal images were needed to better visualize structures that were limited on transabdominal imaging. FINDINGS: Uterus: 69 x 56 x 39 mm. Endometrial Stripe: 7 mm. Right Ovary: 34 x 32 x 18 mm. Left Ovary: 48 x 26 x 23 mm. Vascular flow identified to bilateral ovaries. 25 x 20 mm cystic lesion left ovary. IMPRESSION: * Vascular flow seen to the bilateral ovaries. * Multiple bilateral ovarian follicles with left ovarian cyst. * Endometrial stripe is unremarkable for the patient's age. Electronically signed by: Russell Garnett MD (11/10/2019 3:35 PM) [id number]
== END | disposition home or self-care (01) ==
LOC: US 13:31
PROVIDERS: ATTEND Registered Nurse
DX: N83.01 Follicular cyst of right ovary (principal); N83.202 Unspecified ovarian cyst, left side; N92.0 Excessive and frequent menstruation with regular cycle; N92.6 Irregular menstruation, unspecified
CPT/HCPCS: 76830; 76856

== ENCOUNTER 2020-07-29 17:15 | Emergency (ER) | payer OTHER ==
[~2020-07-29] VITALS: Ht 165.1 cm; Wt 70.6 kg
[2020-07-29 17:35] VITALS: BP 106/58
--- NOTE | 2020-07-29 19:37 | PHYS DOC ---
Past History Past Medical History: Other Additional Past Medical Histor: HEP C Past Surgical History: No Surgical History Additional Smoking Information: 1-2/DAY Alcohol Use: None Drug Use: None Adult General Chief Complaint Chief Complaint: VAGINAL BLEEDING HPI HPI Patient is a 19-year-old female presents emergency department complaining of ongoing vaginal bleeding. Patient states she was evaluated yesterday at [facility] where they performed a ultrasound and she was ultimately diagnosed with a urinary tract infection and given a prescription for Keflex. Patient states they did not do a pelvic exam and she is concerned that something is going wrong as she still has continued bleeding. Patient states she does not bleed enough to soak an entire pad, patient states she has no abdominal pain or discomfort or cramping, no rash vaginal fluids, no vaginal discharge. Patient states that she called her grandfather who is a retired physician and told him what her symptoms were and he recommended that she come back to the emergency department for another evaluation, patient states this is the main reason why she is here today. Patient reports she does not seen an CULLED FRUIT PACKER for this , patient states she has an appointment in August. Patient reports she is a 3 para 1 SAB 1 patient denies COVID-19 symptoms, patient does not wish to be tested for the COVID-19 virus today. Review of Systems Review of Systems 14 body systems of review of systems have been reviewed. See HPI for pertinent positives and negative responses, otherwise all other systems are negative, nonpertinent or noncontributory. Allergies Allergies Allergies Coded Allergies Type Severity Reaction Last Updated Verified haloperidol Allergy Unknown 04/14/18 Yes quetiapine Allergy Unknown 09/06/18 Yes Physical Exam Physical Exam Constitutional: Well developed, well nourished, no acute distress, non-toxic appearance. HENT: Normocephalic, atraumatic, bilateral external ears normal, oropharynx moist, no oral exudates, nose normal. Eyes: PERRLA, EOMI, conjunctiva normal, no discharge. Neck: Normal range of motion, no tenderness, supple, no stridor. Cardiovascular:Heart rate regular rhythm, no murmur Lungs & Thorax: Bilateral breath sounds clear to auscultation Abdomen: Bowel sounds normal, soft, no tenderness, no masses, no pulsatile masses. Skin: Warm, dry, no erythema, no rash. Back: No tenderness, no CVA tenderness. Extremities: No tenderness, no cyanosis, no clubbing, ROM intact, no edema. Neurologic: Alert and oriented X 3, normal motor function, normal sensory function, no focal deficits noted. Psychologic: Affect normal, judgement normal, mood normal. : heart tones 160, EXTERNAL VAGINAL EXAM WITHOUT LESIONS, NO ABNORMALITIES, SPECULUM EXAM NO BLOOD IN VAGINAL VAULT, CERVICAL OS CLOSED, TISSUE PINK WITHOUT ABNORMALITIES, BIMANUAL EXAM WITHOUT CERVICAL MOTION TENDERNESS OR ADNEXAL PAIN. Current Patient Data Vital Signs Vital Signs Date Time Temp Pulse Resp B/P (MAP) Pulse Ox O2 Delivery O2 Flow Rate FiO2 07/29/20 17:35 99.0 86 20 106/58 (74) 99 Room Air EKG EKG [] Radiology/Procedures Radiology/Procedures [] Heart Score Risk Factors: Risk Factors: DM, Current or recent (<one month) smoker, HTN, HLP, family history of CAD, obesity. Risk Scores: Risk Factors: DM, Current or recent (<one month) smoker, HTN, HLP, family history of CAD, obesity. Course & Med Decision Making Course & Med Decision Making Pertinent Labs and Imaging studies reviewed. (See chart for details) 19 YO FEMALE VITALS REVIEWED, PRESENTS TO THE ER WITH COMPLAINTS OF ONGOING VAGINAL BLEEDING. PT STATES SHE WAS EVALUATED AT [facility] LAST NIGHT AND HAD A SONOGRAM AND UA [id number] SHOWING A 17WEEK 2 DAY IUP AND UTI WITH HE MATURIA. PT BECAME CONCERNED WHEN SHE RELAYED THESE RESULTS TO HER RETIRED PHYSICIAN GRANDFATHER AND HE RECOMMEDED SHE COME TO THE ER FOR ANOTHER EVALUATION. AN ER WORKUP INCLUDED BEDSIDE FHT'S = 160, PELVIC EXAM UNREMARKABLE, THE CERVICAL OS IS CLOSED AND NO BLOOD APPRECIATED IN VAGINAL VAULT, NORMAL BIMANUAL EXAM. DISCUSSED FINDINGS WITH PATIENT WHO GAVE VERBAL UNDERSTANDING OF DISCHARGE HOME INSTRUCTIONS, LIA START UTI MEDICATION ANTIBIOTIC PRESCRIBED YESTERDAY IMEDIATELY, WILL FU WITH CULLED FRUIT PACKER SOON, GAVE VERBAL UNDERSTANDING OF RTER PRECAUTIONS AND CONCERNS, PT HAD NO FURTHER QUESTIONS, PT DC'D TO HOME WITHOUT INCIDENT. Dragon Disclaimer Dragon Disclaimer This electronic medical record was generated, in whole or in part, using a voice recognition dictation system. Departure Departure: Impression: Primary Impression: Vaginal bleeding before 22 weeks gestation Disposition: 01 DC HOME SELF CARE/HOMELESS Condition: STABLE Referrals: PCP,NO (PCP) Patient Instructions: Vaginal Bleeding During , First Trimester Additional Instructions: You have been evaluated for vaginal bleeding today, we have examined your cervix and it is closed as expected, there was no bleeding noted during your pelvic exam. I suspect the bleeding may be coming from your urinary tract infection, I encourage you and urge you to start your prescribed antibiotic for your UTI as soon as possible and take it as directed. You have an CULLED FRUIT PACKER to follow-up with I encourage you to see them soon. We have checked your heart tones today and the heart rate is 160, this is normal for this first trimester . Please return to the emergency department immediately for worsening symptoms or other concerns, please see your CULLED FRUIT PACKER soon. JEREMI PATHAK APRN Jul 29, 2020 19:37
== END 2020-07-29 19:45 | disposition home or self-care (01) ==
LOC: ER 17:15
DX: O46.92 Antepartum hemorrhage, unspecified, second trimester (principal); O23.42 Unspecified infection of urinary tract in pregnancy, second trimester; O99.332 Smoking (tobacco) complicating pregnancy, second trimester; Z3A.17 17 weeks gestation of pregnancy; Z88.8 Allergy status to other drugs, medicaments and biological substances
CPT/HCPCS: 99284